=== PATIENT | female | born 2000 | race Two or more races ===

== ENCOUNTER 2024-10-06 23:21 | Emergency (ER) | payer SELFPAY ==
[2024-10-06 23:21] VITALS: BMI 29.2
--- NOTE | 2024-10-06 23:32 | EDNOTE_ITS ---
ED Skin Abcess FB-RME/HPI General Chief complaint: Skin/Abscess/Foreign Body Stated complaint: RIGHT FINGERNAIL INJURY Time Seen by Provider: 10/06/24 23:29 Arrival date/time: 10/06/24 23:21 RME / HPI RME / HPI narrative: This section includes all my notes and documentations, including HPI, PE, and ED course. Rodriguez Coombs MD HPI: 24yo female presents to the ED for a right fingernail injury. Patient states she went to hug her girlfriend, reporting her finger nail hit into the palm of her girlfriend's hand and is now barely hanging on longterm. She states the nail started bleeding and she had numbness to the right side of her ring finger, so she came in for evaluation. She denies any other injuries. No other complaints reported. ROS: All negative except as documented in HPI. Physical Exam: General:? Alert and oriented.?? Eyes:? Conjunctivae and lids clear.?? ENT:? No nasal congestion.?? Neck:? Supple.?? Lungs:? No respiratory distress.?? Skin:? Warm and dry.?? Neuro:? Alert and oriented X 3.? Right 4th Finger: Partial nail avulsion ulnar side. Complete nail avulsion procedure note: The wound was prepped and draped in normal sterile fashion. Local anesthesia achieved with 1% lidocaine, 3 mL. Profuse irrigation performed with normal saline. Nail grasped with hemostat and complete nail gently pulled out. Topical ABX and dressing applied. Patient tolerated well with no complications. Provided good wound care instructions. Based on my best medical judgment, made decision no further evaluation or treatment indicated at this time. Patient understands and agrees to the discharge instructions customized and printed, see below. Discharge instructions from Dr. Coombs: -- Keep the current dressing intact for 48 hours. -- After 48 hours, change the dressing once daily for 10 days. -- First remove the dressing gently. If it does not come off easily, run water through it until it comes off easily. -- Then gently wash with soap and water. -- After completely drying, apply antibiotic ointment and new dressing. -- Elevate above the heart level today and tomorrow as much as possible. Placing the hand on the head is a good method. -- See a private doctor on 10/08/2024 for recheck to make sure you are healing without complications. Ask for help until you are completely better. Expect 3 months for the nail to grow back. -- Seek immediate medical care with fever, spreading redness from the wound, or with any concerns. Rodriguez Coombs MD Related Data Allergies Allergy/AdvReac Type Severity Reaction Status Date / Time amoxicillin Allergy Mild RASH Verified 07/01/16 08:40 Review of Systems Review of Systems Systems Reviewed: All systems reviewed, normal except as documented Past Medical History Social History SMOKING STATUS: Never smoker ED Exam Narrative Physical exam: As noted in HPI. Course Quality Measures none Orders Category Date Time Status Bacitracin Oint pkt Med 10/06/24 23:41 Discontinued 1 gm TOP X1 ONE Vital Signs Vital signs: Vital Signs Temperature 97.9 F 10/06/24 23:36 Pulse Rate 75 10/06/24 23:36 Respiratory Rate 16 10/06/24 23:36 Blood Pressure 112/73 10/06/24 23:36 Pulse Oximetry (%) 96 10/06/24 23:36 Oxygen Delivery Method Room Air 10/06/24 23:36 Skin / Abscess / Foreign Body MDM Narrative MDM Narrative:: Scribe Attestation: 10/06/24 - Mahi Tejada am scribing for and in the presence of Dr. Coombs. Patient data External records reviewed:: [facility] previous records (Per chart review, patient has no previous ED visits or admissions to this facility.) Clinical information provided by:: patient Social determinants that could affect healthcare access:: none Patient has the following chronic illnesses:: none How is presenting disease/condition affected by chronic disease/condition?: no chronic disease Evaluation data The following diagnostics were reviewed and interpreted by me:: other (specify) (none) Lab and/or radiology exams considered but not ordered:: none Interpretation Summary: none Medications / Prescriptions Medications or Prescriptions considered but not ordered:: none Medication administrations:: Medication Administration History Discontinued Medications Bacitracin (Bacitracin Oint 1 Gm Packet) 1 gm TOP X1 ONE Stop: 10/06/24 23:42 Bacitracin Consultations Consultation(s) initiated? (list below): No Diagnosis Skin/Abscess Differential Diagnosis: other (Partial nail avulsion) Most likely diagnosis given after review of the tests above:: Fingernail avulsion Admission Indicated Admission indicated?: not indicated Explain why admission is indicated or not indicated:: No criteria for admission. Admission Request Was there a request for admission?: No Disposition Plan Disposition Plan: Discharge Discharge Attestation Discharge Attestation: The patient and all family members were given an opportunity to ask questions and understood the discharge instructions. Discharge instructions specifically effects, indications for sooner follow up or return to the emergency department, and the expected course of current diagnosis. Patient condition: Stable Discharge Plan Plan Patient Disposition: HOME (Self Care) Problem List Clinical Impression: Nail avulsion, finger Patient/Caregiver Discharge Instructions Discharge Activity: activity as tolerated Education Materials: ED Detached Fingernail or Toenail Additional Instructions: Discharge instructions from Dr. Coombs:? -- Keep the current dressing intact for 48 hours. -- After 48 hours, change the dressing once daily for 10 days. -- First remove the dressing gently.? If it does not come off easily, run water through it until it comes off easily. -- Then gently wash with soap and water. -- After completely drying, apply antibiotic ointment and new dressing. -- Elevate above the heart level today and tomorrow as much as possible.? Placing the hand on the head is a good method. -- See a private doctor on 10/08/2024 for recheck to make sure you are healing without complications. Ask for help until you are completely better. Expect 3 months for the nail to grow back. -- Seek immediate medical care with fever, spreading redness from the wound, or with any concerns. Print Language: Citizen Of [place] Stand Alone Forms: Jaci Award Info., Patient Portal Info Letter
[2024-10-06 23:36] VITALS: BP 112/73; PULSE 75; RESP 16; TEMP 36.6; O2SAT 96
[2024-10-06 23:54] VITALS: RESP 18
== END 2024-10-06 23:54 | disposition home or self-care (01) ==
LOC: SERX 10-07 00:04
PROVIDERS: Emergency Provider Emergency Medicine
DX: S61.304A Unspecified open wound of right ring finger with damage to nail, initial encounter (principal); W50.0XXA Accidental hit or strike by another person, initial encounter
CPT/HCPCS: 11730; 99283